=== PATIENT | male | born 1960 | race Hispanic/Latino ===

== ENCOUNTER 2021-08-23 10:30 | Inpatient (IN) | payer OTHER ==
[2021-10-02] MEDS ORDERED: Sodium Chloride 0.9% 100 ML ONE (05:56)
[2021-10-02] MEDS ORDERED: Vancomycin 1 GM/200 ML BAG ONE (05:56)
[2021-10-02] MEDS ORDERED: ceFAZolin 2 GM/DEX 5% 100 ML BAG ONE (05:56)
[2021-10-02] MEDS ORDERED: Tranexamic Acid 1,000 MG/10 ML VIAL ONE (05:56)
[2021-10-02] MEDS ORDERED: EPINEPHrine 1 MG/ML AMP ONE (06:32)
[2021-10-02] MEDS ORDERED: Bupivacaine 0.25% HCL 30 ML VIAL ONE (06:32)
[2021-10-02] MEDS ORDERED: Bupivacaine PF 0.5% 30 ML VIAL ONE (06:32)
[2021-10-02] MEDS ORDERED: Midazolam HCl 2 mg/2 ml Vial ONE (06:35)
[2021-10-02] MEDS ORDERED: Lidocaine 1% (PF) 30 ML VIAL ONE (06:35)
[2021-10-02] MEDS ORDERED: Fentanyl 100 MCG/2 ML VIAL ONE ×3 (06:35→09:14)
[2021-10-02] MEDS ORDERED: Ondansetron PF 4 MG/2 ML Vial ONE (07:00)
[2021-10-02] MEDS ORDERED: Dexamethasone 20 MG/5 ML VIAL ONE (07:00)
[2021-10-02] MEDS ORDERED: ePHEDrine 50 MG/ML VIAL ONE (07:00)
[2021-10-02] MEDS ORDERED: Ropivacaine 2% HCl/PF (20 MG/10 ML VIAL) ONE (07:00)
[2021-10-02] MEDS ORDERED: Lidocaine 1% PF 5 ML VIAL ONE (07:00)
[2021-10-02] MEDS ORDERED: PROPOFOL 200 MG/20 ML VIAL ONE (07:00)
[2021-10-02] MEDS ORDERED: Bupivacaine HCl 0.5%/Epinephrine 1:200,000/PF 30 ml Vial ONE (07:00)
[2021-10-02] MEDS ORDERED: Ketorolac Tromethamine 30 MG/ML VIAL ONE (07:00)
[2021-10-02] MEDS ORDERED: Dexmedetomidine 200 MCG/2 ML VIAL ONE (07:12)
[2021-10-02] MEDS ORDERED: Fentanyl 100 MCG/2 ML VIAL IV PRN (07:44)
[2021-10-02] MEDS ORDERED: traMADol HCl 50 MG TAB PO PRN ×3 (07:45→10:41)
[2021-10-02] MEDS ORDERED: Ondansetron PF 4 MG/2 ML Vial IVP PRN ×2 (07:45→10:41)
[2021-10-02] MEDS ORDERED: Zolpidem Tartrate 5 MG TAB PO PRN ×2 (07:45→10:41)
[2021-10-02] MEDS ORDERED: Ropivacaine HCl/PF 250 ML in Premix Bag 1 BAG NERVE BLCK SCH (07:45)
[2021-10-02] MEDS ORDERED: Promethazine HCl 25 MG/ML VIAL IM PRN ×3 (07:45→10:41)
[2021-10-02] MEDS ORDERED: HYDROcodone/Acetaminophen 10/325 mg Tablet PO PRN ×4 (07:45→10:41)
[2021-10-02] MEDS ORDERED: HYDROmorphone 2 MG/ML VIAL SLOW IVP PRN (09:15)
[2021-10-02] MEDS ORDERED: Ondansetron HCl/PF 4 MG/2 ML Vial IVP PRN (09:15)
[2021-10-02] MEDS ORDERED: PACU-Morphine 4MG/ML VIAL SLOW IVP PRN (09:15)
[2021-10-02] MEDS ORDERED: Promethazine HCl 25 MG/ML VIAL IVPB PRN (09:15)
[2021-10-02] MEDS ORDERED: Acetaminophen 325 MG TAB PO PRN (10:41)
[2021-10-02] MEDS ORDERED: diphenhydrAMINE 25 MG CAP PO PRN (10:41)
[2021-10-02] MEDS ORDERED: Fentanyl 100 MCG/2 ML VIAL SLOW IVP PRN ×2 (10:41)
[2021-10-02] MEDS: Senokot S 8.6-50 MG TAB PO SCH ×2 (10:58→20:53)
[2021-10-02] MEDS: Multivitamin W/ Minerals 1 TAB PO SCH (10:58)
[2021-10-02] MEDS: Ferrous Gluconate 324 MG TAB PO SCH ×2 (10:58→20:54)
[2021-10-02] MEDS: Aspirin 81 mg Enteric Coated Tablet PO SCH ×2 (10:59→20:53)
[2021-10-02] MEDS: Ketorolac Tromethamine 30 MG/ML VIAL IVP SCH ×3 (11:15→23:59)
[2021-10-02] MEDS: Dextrose 5 %-0.45 % NaCl 1,000 ML IV SCH ×2 (11:18→22:14)
[2021-10-02 11:31] VITALS: BMI 26.6
[2021-10-02] MEDS ORDERED: Ketorolac Tromethamine 30 MG/ML VIAL IVP SCH (14:00)
[2021-10-02] MEDS: ceFAZolin Sodium/D5W 2 GM in Premix Bag 1 BAG IVPB SCH ×2 (14:17→20:56)
[2021-10-02] MEDS ORDERED: Vancomycin 1.5 GRAM/300 ML BAG 1.5 GM in Premix Bag 1 BAG IVPB SCH (18:00)
[2021-10-03] MEDS: Ketorolac Tromethamine 30 MG/ML VIAL IVP SCH ×2 (05:16→11:34)
[2021-10-03 05:48] LABS: Hemoglobin 12.9 g/dL (14.0-18.0); Mean Corpuscular HGB CONC 35.8 g/dL (32.0-36.0); Mean Corpuscular Hemoglobin 35.6 pg (27.0-31.0); Mean Corpuscular Volume 99.4 fL (78.0-98.0); Mean Platelet Volume 7.1 fL (7.4-10.4); Platelet Count 221 thou/uL (130-400); RBC Distribution Width 11.6 % (11.5-14.5); Red Blood Cell (RBC) Count 3.61 mill/uL (4.70-6.10); White Blood Cell (WBC) Count 15.2 thou/uL (4.8-10.8)
[2021-10-03] MEDS: Dextrose 5 %-0.45 % NaCl 1,000 ML IV SCH (06:02)
[2021-10-03] MEDS: Ferrous Gluconate 324 MG TAB PO SCH (09:31)
[2021-10-03] MEDS: Aspirin 81 mg Enteric Coated Tablet PO SCH (09:31)
[2021-10-03] MEDS: Multivitamin W/ Minerals 1 TAB PO SCH (09:31)
[2021-10-03] MEDS: Senokot S 8.6-50 MG TAB PO SCH (10:28)
[2021-10-03] MEDS ORDERED: Ropivacaine 0.2% 550 ML 550 ML NERVE BLCK SCH (16:30)
[2021-10-03 18:19] VITALS: BP 128/80; TEMP 98.1
== END 2021-10-03 18:44 | disposition home or self-care (01) | DRG 470 ==
LOC: SURG A 10-02 05:32
PROVIDERS: ADMIT Orthopaedic Surgery; ATTEND Orthopaedic Surgery
PROC: 0SRD0J9 Replacement of Left Knee Joint with Synthetic Substitute, Cemented, Open Approach (ICD-10-PCS; principal; 2021-10-02)
DX: M17.12 Unilateral primary osteoarthritis, left knee (principal); M21.862 Other specified acquired deformities of left lower leg; E78.5 Hyperlipidemia, unspecified; Z79.899 Other long term (current) drug therapy
CPT/HCPCS: 36415; 85027; A4306; C1713; C1776; J0171; J1100; J1885; J2001; J2250; J2405; J2704; J2795; J3010; J3370; J3490; S0020

== ENCOUNTER 2021-09-27 10:08 | Outpatient (CLI) | payer OTHER ==
[2021-09-27 11:34] LABS: #Basophils 0.1 10x3/uL (0.0-0.2); #Eosinphils 0.5 10x3/uL (0.0-0.5); #Monocytes 0.6 10x3/uL (0.0-1.1); #Neutrophils 4.3 10x3/uL (1.5-8.4); %Basophils 0.6 % (0.0-2.0); %Eosinophils 5.5 % (0.0-6.0); %Lymphocytes 34.6 % (18.0-47.0); %Monocytes 7.5 % (0.0-10.0); %Neutrophils 51.2 % (40.0-75.0); Hemoglobin 15.8 g/dL (13.5-17.5); Mean Corpuscular HGB CONC 34.7 g/dL (32.0-36.0); Mean Corpuscular Hemoglobin 33.5 pg (27.0-33.0); Mean Corpuscular Volume 96.6 fl (81.2-95.1); Mean Platelet Volume 9.3 fl (7.4-10.4); Platelet Count 214 10x3/uL (150-450); RBC Distribution Width 12.4 % (11.5-14.5); Red Blood Cell (RBC) Count 4.71 10x6/uL (4.32-5.72); White Blood Cell (WBC) Count 8.4 10x3/uL (3.5-10.5)
[2021-09-27 11:43] LABS: Prothrombin Time 10.7 sec (9.5-12.1)
[2021-09-27 11:44] LABS: Anion Gap 14 mmol/L (10-20); BUN (Urea Nitrogen) 15 mg/dL (8.4-25.7); Calc. Creatinine Clearance 0 mL/min (70-130); Calcium 9.4 mg/dL (7.8-10.44); Carbon Dioxide 24 mmol/L (23-31); Chloride 108 mmol/L (98-107); Glucose 89 mg/dL (80-115); Potassium 4.9 mmol/L (3.5-5.1); Sodium 141 mmol/L (136-145)
[2021-09-27 17:35] LABS: SARS-CoV-2 PCR by NAA Not Detected (NotDetected)
[2021-10-01 11:22] VITALS: BMI 26.6
== END 2021-09-27 10:09 | disposition home or self-care (01) ==
LOC: LABBT 10:08
PROVIDERS: ATTEND Orthopaedic Surgery
DX: Z01.818 Encounter for other preprocedural examination (principal); M17.12 Unilateral primary osteoarthritis, left knee; Z20.822 Contact with and (suspected) exposure to COVID-19
CPT/HCPCS: 80048; 85025; 85610; 87081; 93005; 93010; U0003; U0005